=== PATIENT | male | born 1965 | race Caucasian/White ===

== ENCOUNTER → 2016-04-22 | Outpatient (CLI) | payer OTHER ==
[~2016-04-22] MED LIST: ASCO1CAP3 PO; DEXL60CA4 PO; DUTA1CAP25 PO; ECHINACEA PO; LISI-729 PO; METH10TA6 PO
[2016-04-22 18:10] LABS: THYROID STIMULATING HORMONE 2.2 uIu/ml (0.300-4.500)
== END | disposition home or self-care (01) ==
LOC: C.LABMFLN 07:26
PROVIDERS: ATTEND Family Medicine
DX: E05.90 Thyrotoxicosis, unspecified without thyrotoxic crisis or storm (principal)

== ENCOUNTER → 2016-07-29 | Outpatient (CLI) | payer OTHER ==
[2016-07-29 18:58] LABS: CALCIUM 9.1 mg/dl (8.5-10.1)
[2016-07-29 19:01] LABS: BLOOD UREA NITROGEN 16 mg/dl (7-18); BUN/CREATININE RATIO 13.5 (10-20); CARBON DIOXIDE 25 mmol/L (21-32); CHLORIDE 104 mmol/L (98-107); GLUCOSE 85 mg/dl (70-99); POTASSIUM 4.2 mmol/L (3.5-5.1); SODIUM 139 mmol/L (136-145)
[2016-07-29 19:11] LABS: THYROID STIMULATING HORMONE 0.714 uIu/ml (0.300-4.500)
== END | disposition home or self-care (01) ==
LOC: C.LABMFLN 17:02
PROVIDERS: ATTEND Family Medicine
DX: E05.00 Thyrotoxicosis with diffuse goiter without thyrotoxic crisis or storm (principal); I10 Essential (primary) hypertension

== ENCOUNTER → 2017-06-02 | Outpatient (CLI) | payer OTHER ==
[2017-06-02 18:33] LABS: BLOOD UREA NITROGEN 14 mg/dl (7-18); CALCIUM 9.7 mg/dl (8.5-10.1); CARBON DIOXIDE 28 mmol/L (21-32); CREATININE 1.25 mg/dl (0.60-1.40); GLUCOSE 106 mg/dl (70-99); SODIUM 136 mmol/L (136-145)
== END | disposition home or self-care (01) ==
LOC: C.LABMFLN 15:39
PROVIDERS: ATTEND Family Medicine
DX: E05.90 Thyrotoxicosis, unspecified without thyrotoxic crisis or storm (principal); I10 Essential (primary) hypertension

== ENCOUNTER 2020-06-01 09:53 | Inpatient (IN) ==
--- NOTE | 2020-04-22 15:25 | Communication Note ---
COVID screening: Called patient to discuss work travel hx in regards to upcoming shoulder arthroplasty scheduled 06/01/20. 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 Patient states that he will receive his second Covid vaccine 05/08/20. Patient states during travel he sleeps in his truck and brings his own food only stopping for fuel and to use facilities- he states he follows strict Covid precaution guidelines and rarely has interactions with other people. Uses PPE. Patient does not know his work schedule until 1-2 weeks prior but will contact PAT closer to DOS to update regarding on what work travel is planned/scheduled in the time period prior to surgery. Patient aware to continue following strict COVID precaution guidelines.
--- NOTE | 2020-05-07 09:39 | PAT Medication Instructions ---
Medication Instructions Date of Service May 07, 2020 Home Medications allopurinol 300 mg PO QAM cetirizine 10 mg PO QAM dutasteride-tamsulosin 1 cap PO QAM lisinopril 5 mg PO QAM methimazole 10 mg PO QAM tamsulosin 0.4 mg PO QAM DO NOT take the morning of surgery cetirizine 10 mg PO QAM lisinopril 5 mg PO QAM Take morning of surgery With a small sip of water, OTHERWISE NOTHING TO EAT OR DRINK AFTER MIDNIGHT: allopurinol 300 mg PO QAM dutasteride-tamsulosin 1 cap PO QAM methimazole 10 mg PO QAM tamsulosin 0.4 mg PO QAM Other Notes If you have any questions please call us at [phone] or [phone] or [phone] or [phone]
--- NOTE | 2020-05-15 14:22 | Anesthesiology Consultation ---
Date of Service May 15, 2020 Assessment & Plan (1) Encounter for pre-operative examination: COVID Status: As of 05/15 assessment, patient denies travel to endemic area, known exposure/sick contacts, or symptoms of COVID19. Patient instructed that they and their household members must follow strict social distancing guidelines, wear a mask in public and avoid travel/events/gatherings for 14 days prior to surgery. Preoperative COVID19 testing to be completed prior to surgery per surgeon's arrangements. Patient made aware to self-isolate as much as possible between COVID testing and surgery. 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 PCP Clearance 05/15/20 = "Preoperative evaluation identified issues with obstructive sleep apnea. We will try to expedite sleep Medicine consultation with our Sleep Medicine colleagues. Patient's 12 lead EKG identified frequent unifocal PVCs with dyspnea on exertion. Patient will have a stress echo performed prior to his surgery. Routine preoperative blood work to include BMP CBC PT INR ordered. BNP. Patient return clinic in 10 days for clearance for surgery. CXR ordered." Chart Review Chart Review: Acceptable Risk for Surgery (pending stress test and final PCP clearance) and Patient seen in Pre Admission Testing Teaching & Discussion Instructed NPO after midnight before surgery, except medications with 15 cc of water. Medication instructions provided according to the PAT guidelines. History Surgery Operation Date: 06/01/20 08:40 Proposed Procedures p Right Reverse Total Shoulder Arthroplasty, Distal Clavicle Excision, Biceps Tenodesis - Jv Odonnell MD Height/Weight Height: 6 ft 3 in Weight: 149.685 kg Allergies Allergy/AdvReac Type Severity Reaction Status Date / Time No Known Allergies Allergy Verified 05/15/20 09:41 Medications Home Medications Medication Instructions Recorded Confirmed Last Taken allopurinol 300 mg PO QAM 04/22/20 05/15/20 Unknown cetirizine 10 mg PO QAM 04/22/20 05/15/20 Unknown dutasteride-tamsulosin 1 cap PO QAM 04/22/20 05/15/20 Unknown lisinopril 5 mg PO QAM 04/22/20 05/15/20 Unknown methimazole 10 mg PO QAM 04/22/20 05/15/20 Unknown tamsulosin 0.4 mg PO QAM 04/22/20 05/15/20 Unknown Past Medical History Medical History (Updated 05/15/20 @ 15:10 by Sravan Kaiser) BPH (benign prostatic hyperplasia) Enlarged prostate without lower urinary tract symptoms (luts) Gout Graves disease On methimazole Hypertension Morbid obesity with BMI of 40.0-44.9, adult Osteoarthritis Sleep apnea, obstructive Patient denies, but scanned overnight pulse oximetry data does show significant nocturnal hypoxia. Pt to follow up with pulm/sleep med 06/10/20. 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) Past Family History Family History Mother Myocardial infarction CHF (congestive heart failure) Grandmother Myocardial infarction Past Surgical History Surgical History (Updated 05/15/20 @ 14:25 by Sravan Kaiser) Biceps tendon rupture left forearm 2014 History of cardiac cath 2006 - CP - no stent ,pt reports CP ruled 2/2 gas/reflux History of shoulder surgery right shoulder repair 1982 History of umbilical hernia repair Past Anesthesia History No Hx of Anesthesia Complications and No Family Hx of Anesthesia Complications History of PONV No Hx of PONV and No Hx of Motion Sickness Social History Smoking Status: Former smoker tobacco type: cigarettes Do You Dip or Chew Tobacco: Yes (advised None AM DOS) Smoking End Date: quit 20 yrs ago Hx Alcohol Use: Yes Alcohol type: beer alcohol intake frequency: a few times a month Hx Substance Use: No substance use type: does not use Review of Systems Pt denies any recent chest pain, shortness of breath, palpitations, cough, fever, URI. +post nasal drip with reflexive cough +reflux Physical Exam Vital Signs BP: 138/77 P: 70bpm SPO2: 94% RA T: 98.6 F R: 18 Constitutional + morbidly obese ENMT Mouth: no dental restorations, no chipped teeth and no loose teeth Thyromental Distance: > or= 3.5 Finger Breadths Mallampati Class: III Neck + thick neck and + facial hair (short singh); neck extension not limited Respiratory normal respiratory effort, lungs clear to auscultation Cardiovascular Rate/Rhythm: regular rate and regular rhythm Heart Sounds: + murmur (I/ systolic with radiation to carotids) Extremities: no edema Testing Laboratory Results APTT 25.8 Seconds (21.0-31.0) 05/15/20 10:58 Urine Color Yellow 05/15/20 14:45 Urine Appearance Clear (Clear) 05/15/20 14:45 Urine pH 7.0 (4.5-7.5) 05/15/20 14:45 Ur Specific [place] 1.018 (1.000-1.030) 05/15/20 14:45 Urine Protein Negative (Negative) 05/15/20 14:45 Urine Glucose (UA) Negative (Negative) 05/15/20 14:45 Urine Ketones Negative (Negative) 05/15/20 14:45 Urine Nitrite Negative (Negative) 05/15/20 14:45 Ur Leukocyte Esterase Negative (Negative) 05/15/20 14:45 Blood Type A Positive 05/15/20 14:45 Antibody Screen NEGATIVE 05/15/20 14:45 05/15/20 WBC: 6.31 H/H: 14.7/44.1 PLATELETS: 259 SODIUM: 138 POTASSIUM: 4.3 CHLORIDE: 105 CO2: 30 BUN: 16 CREATININE: 1.31 GLUCOSE: 105 TSH: 4.500 PT: 10.3 INR: 1.0 Electrocardiogram Date: 05/15/20 Sinus rhythm at 72 bpm with frequent ventricular premature complexes. *unconfirmed, done at [facility] clearance [facility] Chest X-Ray Date: 05/15/20 IMPRESSION: 1. No acute cardiopulmonary findings. 2. Mild cardiomegaly.
--- NOTE | 2020-05-15 15:12 | XRay Report ---
XR chest Pre-admission PA/Lat CLINICAL HISTORY: Preoperative evaluation. COMPARISON STUDY: No previous studies for comparison. FINDINGS: Lung volumes are normal. Lungs are clear. There is no pneumothorax or pleural effusion. Mil d cardiomegaly is noted. Mediastinal contours are normal. There is no evidence for pulmonary edema. IMPRESSION: 1. No acute cardiopulmonary findings. 2. Mild cardiomegaly. ACT 112: Negative or not required by law. Electronically signed by: Mg Nguyen M.D. 05/15/2020 3:10 PM
[2020-05-15 15:21] LABS: Partial Thromboplastin Time 25.8 Seconds (21.0-31.0)
[2020-05-15 15:47] LABS: Appearance Urine Clear (Clear); Bilirubin Urine Negative (Negative); Blood Urine Negative (Negative); Color Urine Yellow; Glucose Urine UA Negative (Negative); Ketones Urine Negative (Negative); Leukocyte Esterase Urine Negative (Negative); Nitrite Urine Negative (Negative); Protein Urine Negative (Negative); Specific Gravity Urine 1.018 (1.000-1.030); Urobilinogen Urine Negative (Negative)
[2020-05-16 06:01] LABS: Estimated Average Glucose 126 mg/dl
--- NOTE | 2020-05-30 19:03 | History & Physical Report ---
Date of Service May 30, 2020 Assessment & Plan (1) Primary osteoarthritis, right shoulder: Treatment options discussed with patient. He has failed conservative measures as above. He would like to proceed with surgical intervention. Risks, benefits and alternatives to surgery including but not limited to infection, DVT, pain, stiffness, need for revision surgery, damage to blood vessels, damage to nerves, PE, , were discussed with the patient and they wish to proceed. Plan for right total shoulder arthroplasty with distal clavicle excision at [facility] on 06/01/[address] Odonnell. Will plan on OPPT post discharge from the hospital. All questions answered. F/u post operatively. History of Present Illness Chief Complaint: Right shoulder pain Primary Care Provider: Momo Álvarez MD 55 year old male with PMHx significant for HTN, hyperthyroidism, moderate aortic stenosis, JEFFERSON who presents with longstanding right shoulder pain. Pain interfering with his daily activity. He has endstage OA right shoulder. He has failed conservative measures including injection and anti-inflammatories. He would like to proceed with right shoulder replacement. Patient denies headaches, sweats, fevers, chills, double vision, blurred vision, cough, sore throat, dysphagia, chest pain, sob, wheezing, n/v/d/c, numbness, tingling, fatigue, urinary symptoms, mood disorders. ROS positive for right shoulder pain and stiffness. Allergies Allergy/AdvReac Type Severity Reaction Status Date / Time No Known Allergies Allergy Verified 05/27/20 14:35 Home Medications Medication Instructions Recorded Confirmed Type allopurinol 300 mg PO QAM 04/22/20 05/27/20 History cetirizine 10 mg PO QAM 04/22/20 05/27/20 History dutasteride-tamsulosin 1 cap PO QAM 04/22/20 05/27/20 History methimazole 10 mg PO QAM 04/22/20 05/27/20 History tamsulosin 0.4 mg PO QAM 04/22/20 05/27/20 History losartan 25 mg tablet 25 mg PO DAILY #30 tab 05/27/20 05/27/20 Rx Past Med/Surg History Medical History (Updated 05/30/20 @ 19:14 by Ector Huynh) BPH (benign prostatic hyperplasia) Enlarged prostate without lower urinary tract symptoms (luts) Gout Graves disease On methimazole Hypertension Moderate aortic stenosis Morbid obesity with BMI of 40.0-44.9, adult Osteoarthritis Sleep apnea, obstructive Patient denies, but scanned overnight pulse oximetry data does show significant nocturnal hypoxia. Pt to follow up with pulm/sleep med 06/10/20. Surgical History (Updated 05/15/20 @ 14:25 by Sravan Kaiser) Biceps tendon rupture left forearm 2014 History of cardiac cath 2006 - CP - no stent ,pt reports CP ruled 2/2 gas/reflux History of shoulder surgery right shoulder repair 1982 History of umbilical hernia repair Family History Mother Myocardial infarction CHF (congestive heart failure) Grandmother Myocardial infarction Social History Smoking Status: Former smoker Age Started Using Tobacco: 21; Age Quit Using Tobacco: 35; Second Hand Exposure: No; Hx Alcohol Use: Yes Alcohol type: beer Hx Substance Use: No Preferred Language: Algerian Communication Ability: Effective Visual Impairment: No Limitations Hearing Ability: Normal Rotary Drum Tanner Required: No Beliefs That Will Affect Care: None marital status: Current Living Situation: Spouse current occupational status: employed 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 Feels Safe at Home: Yes Childhood Exposure to Second-Hand Smoke: Yes caffeine: Yes Seatbelt Use: always Sunscreen Use: Yes Assistive Devices: Glasses Review of Systems All systems reviewed & are unremarkable except as noted in HPI & below Physical Exam Constitutional: well developed and well nourished; no acute distress Eyes: PERRL, conjunctivae normal, anicteric sclerae ENMT: external ear and nose normal, oropharynx normal Neck: trachea midline, no thyromegaly Respiratory: normal respiratory effort, lungs clear to auscultation Cardiovascular: Rate/Rhythm: regular rate and regular rhythm Heart Sounds: + murmur (II/ Systolic murmur ) Extremities: no edema Musculoskeletal: Right shoulder: Surgical scar deltopecortal region. Crepitus with motion. Positive Speed's. Painful ROM actively. ROM: ER to 30 degrees, IR to L4, FF to 120 degrees, abduction to 100 degrees. Strength-4+/5 ER, 5/5 IR, and 4+/5 abduction. Skin: no rashes, warm and dry Neurologic: patellar DTR's 2+ bilat, sensation intact Psychiatric: A+Ox3, euthymic affect Results & Data ([facility]) Laboratory Results Lab Results 05/15/20 05/15/20 05/15/20 Range/Units 10:58 14:45 14:45 APTT 25.8 (21.0-31.0) Seconds PTT Ratio 1.0 Estimat Average Glucose mg/dl Hemoglobin A1c (4.5-5.6) % Albumin 3.8 (3.4-5.0) gm/dl Urine Color Urine Appearance (Clear) Urine pH (4.5-7.5) Ur Specific [place]issie (1.000-1.030) Urine Protein (Negative) Urine Glucose (UA) (Negative) Urine Ketones (Negative) Urine Blood (Negative) Urine Nitrite (Negative) Urine Bilirubin (Negative) Urine Urobilinogen (Negative) Ur Leukocyte Esterase (Negative) Blood Type A Positive Antibody Screen NEGATIVE 05/15/20 05/15/20 Range/Units 14:45 14:45 APTT (21.0-31.0) Seconds PTT Ratio Estimat Average Glucose 126 mg/dl Hemoglobin A1c 6.0 H (4.5-5.6) % Albumin (3.4-5.0) gm/dl Urine Color Yellow Urine Appearance Clear (Clear) Urine pH 7.0 (4.5-7.5) Ur Specific [place]issie 1.018 (1.000-1.030) Urine Protein Negative (Negative) Urine Glucose (UA) Negative (Negative) Urine Ketones Negative (Negative) Urine Blood Negative (Negative) Urine Nitrite Negative (Negative) Urine Bilirubin Negative (Negative) Urine Urobilinogen Negative (Negative) Ur Leukocyte Esterase Negative (Negative) Blood Type Antibody Screen Diagnostic Findings Right shoulder: MRI demonstrates intratendinous tearing rotator cuff appears functional, normal subscapularis. AC joint OA, biceps tenosynovitis. X-rays: Bone on bone GH joint with periacticular osteophyte formation, AC joint OA, Type 2 acromion.
[~2020-06-01 09:53] MED LIST changes: +ACETAMINOPHEN 500 MG TAB PO SCH; -ASCO1CAP3 PO; +BUPIVACAINE 0.5 % 5 MG/1 ML PF 10ML VIAL ONE; -DEXL60CA4 PO; -DUTA1CAP25 PO; -ECHINACEA PO; +FAMOTIDINE 20 MG TAB PO SCH; +GABAPENTIN 600 MG DOSE PO SCH; -LISI-729 PO; +LR 15ML/HR IV SCH; +LR 500ML BOLUS IV SCH; -METH10TA6 PO; +METOCLOPRAMIDE HCL 10 MG TABLET PO SCH; +ceFAZolin 2000MG 2,000 MG/15 ML SYR IV SCH; +dexAMETHasone 4 MG TAB PO SCH
[2020-06-01] MEDS ORDERED: fentaNYL citrate 100 MCG/2 ML VIAL ONE ×4 (11:08→16:00)
[2020-06-01] MEDS ORDERED: MIDAZOLAM HCL 1 MG/ML 2ML VIAL ONE (11:08)
[2020-06-01] MEDS ORDERED: ATROPINE SULFATE 0.1 MG/ML 10ML SYR IV PRN (11:51)
[2020-06-01] MEDS ORDERED: ONDANSETRON INJ 2 MG/ML 2 ML VIAL IV PRN ×2 (11:51→18:32)
[2020-06-01] MEDS ORDERED: fentaNYL citrate 100 MCG/2 ML VIAL IV PRN (11:51)
[2020-06-01] MEDS ORDERED: PROMETHAZINE HCL 6.25 MG in SODIUM CHLORIDE 0.9% 50 ML IV PRN (11:51)
[2020-06-01] MEDS ORDERED: ePHEDrine sulfate 50 MG/ML AMP IV PRN (11:51)
--- NOTE | 2020-06-01 12:21 | History & Physical Bridge Note ---
Date of Service June 01, 2020 History & Physical Bridge Note I have examined the patient, reviewed the History & Physical and in the interval since the performance of the History & Physical I have noted the following changes of clinical significance: no changes noted
[2020-06-01] MEDS ORDERED: BACITRACIN INJ 50,000 UNIT VIAL ONE (12:35)
[2020-06-01] MEDS ORDERED: DEXAMETHASONE SOD INJ 4 MG/ML VIAL ONE (12:40)
[2020-06-01] MEDS ORDERED: ROCURONIUM BROMIDE 10 MG/ML 5 ML VIAL IV ONE (12:40)
[2020-06-01] MEDS ORDERED: GLYCOPYRROLATE 0.2 MG/ML VIAL ONE (12:40)
[2020-06-01] MEDS ORDERED: NEOSTIGMINE METHYLSULFATE 5 MG/5 ML SYR ONE (12:40)
[2020-06-01] MEDS ORDERED: LIDOCAINE HCL 2% 2 ML VIAL/AMP(20MG/ML) INFIL ONE (12:40)
[2020-06-01] MEDS ORDERED: PROPOFOL IV EMULSION 10 MG/ML 20 ML VIAL IV ONE ×2 (12:40→15:58)
[2020-06-01] MEDS ORDERED: ONDANSETRON INJ 2 MG/ML 2 ML VIAL ONE ×2 (12:40→15:58)
[2020-06-01] MEDS ORDERED: EpINEphrine HCL INJ 1 MG/ML 1ML SYRINGE ONE ×2 (13:19→13:22)
[2020-06-01] MEDS ORDERED: PHENYLEPHRINE HCL 10 MG/ML VIAL ONE (15:31)
[2020-06-01] MEDS ORDERED: PHENYLEPHRINE 100MCG/ML 5ML SYR ONE (15:31)
[2020-06-01] MEDS ORDERED: ePHEDrine sulfate 50 MG/ML SYR ONE (15:58)
[2020-06-01] MEDS ORDERED: HYDROmorphone INJ 2 MG/ML SYR/VIAL ONE (16:37)
--- NOTE | 2020-06-01 17:23 | Post Operative Brief Note ---
Immediate Post Op Note v1 Date of Surgery June 01, 2020 Pre & Post Diagnosis Operation Date: 06/01/20 12:10 Pre-Op Diagnosis: Primary Osteoarthritis, Right Shoulder, glenohumeral joint and acromioclavicular joint, biceps tenosynovitis, morbid obesity BMI 43.7 Post-Op Diagnosis: Primary Osteoarthritis, Right Shoulder, glenohumeral joint and acromioclavicular joint, biceps tenosynovitis, degenerative glenoid labral tear, morbid obesity BMI 43.7. I identified the patient and participated in the time-out.: Yes Procedure Operation Date: 06/01/20 12:10 Actual Procedures p Right Total Shoulder Arthroplasty with cemented glenoid, Distal Clavicle Excision, Biceps Tenodesis(Right), debridement labrum and large osteophytes glenoid, increased difficulty BMI 43.7- Jv Odonnell MD Surgeon Jv Odonnell MD Buffer Inflated Pad Satish MARISCAL Estimated Blood Loss 200 Findings Consistent with Post-Op Diagnosis Drains Hemovac Drain Anesthesia Type General Regional Complications none Disposition Accompanied Patient To Recovery: No Disposition: Recovery Room Overlapping Procedure I was immediately available: during the entire case.
--- NOTE | 2020-06-01 17:53 | Operative Report ---
Post Operative Report Pre & Post Diagnosis Operation Date: 06/01/20 12:10 Pre-Op Diagnosis: Right shoulder osteoarthritis glenohumeral joint and AC joint, biceps tenosynovitis, history of prior open anterior stabilization procedure for anterior shoulder dislocation, morbid obesity BMI 43.7 Post-Op Diagnosis: Right shoulder osteoarthritis glenohumeral joint and AC joint, biceps tenosynovitis, large glenoid osteophytes with degenerative glenoid labral tear, history of prior open anchor stabilization procedure for anterior shoulder dislocation, morbid obesity BMI 43.7. I identified the patient and participated in the time-out.: Yes Procedure Operation Date: 06/01/20 12:10 Actual Procedures p Right Total Shoulder Arthroplasty Cemented, Distal Clavicle Excision, Biceps Tenodesis, excision large glenoid osteophytes and debridement glenoid labrum, increased difficulty morbid obesity BMI 43.7 (Right) - Jv Odonnell MD Surgeon Jv Odonnell MD Tax Investigator Satish MARISCAL Estimated Blood Loss 200 Findings Consistent with Post-Op Diagnosis Specimens Humeral head Drains 2 Hemovac Anesthesia Type General Regional Complications none Disposition Accompanied Patient To Recovery: No Disposition: Recovery Room Indications 55-year-old male with progressive osteoarthritis in his right shoulder. Radiographs demonstrate [id number] glenohumeral joint with central wear. Patient has hypertrophic AC joint with inferior spur that would contribute to some impingement. MRI reading was positive for rotator cuff tear per radiologist but I felt it was more just tendinopathy with an intact rotator cuff to my interpretation. There is marked biceps tenosynovitis. Patient had open anterior shoulder stabilization procedure in 1984 type of procedure unknown. Patient has had no recurrent instability. Description of Procedure Patient was placed placed under regional block and general anesthetic. The right upper extremity had a towel roll placed on the medial border of the scapula and translated to the side of the bed so it could be manipulated off of the bed as necessary. We had to place a large and typical towel roll and took more time positioning due to his obesity. A foam headrest was placed and protective eyewear was placed. Lower extremities were well-padded. Patient was positioned in a beachchair position approximately 40 degrees. Shoulder exam demonstrated forward flexion to 160 degrees but external rotation only 35 degrees and abduction to 70 degrees with marked [id number] crepitation. No anterior instability. There was an old anterior deltopectoral scar which was widened and thin. The arm was obese. The right upper extremity was prepped and draped in sterile fashion. A deltopectoral approach was performed via the old incisional scar which was utilized and extended slightly distally and laterally. The skin was incised sharply and the subcutaneous flaps were elevated. The cephalic vein was dissected out and retracted laterally with the deltoid. There was dense scar tissue encountered under the deltoid overlying the clavipectoral fascia. After identifying the scarred clavipectoral fascia this was divided at the lateral margin of the conjoined tendon and extended up to the CA ligament. There was significant scarred bursa tissue and some scar tissue overlying the subscapularis tendon where there were sutures adjacent to the upper conjoined tendon and coracohumeral ligament area. The underlying subscapularis tendon tissue was intact. The sutures seem to be superficial to the subscapularis. The scar tissue scarred bursa and old suture material was all resected. The supraspinatus was intact as well as the infraspinatus but there was subacromial bursitis which was resected. Scar tissue underlying the CA ligament was resected and the scar tissue under the conjoined tendon was released to free up the subscapularis tendon. A self-retaining retractor was placed. Biceps findings demonstrated marked biceps tenosynovitis with hypertrophic tenosynovitis starting at the bicipital groove and extending down along the anterior biceps. This tenosynovium was resected from the transverse ligament area which was divided down to the pectoralis tendon. The upper centimeter of the pectoralis was released for inferior exposure. Biceps tendon was tenodesed to the pectoralis with [id number] #2 FiberWire sutures. the proximal biceps resected. The circumflex vessels were tied off with silk ties and divided laterally. The subscapularis muscle fibers were at the level of the circumflex vessels dissection was taken down to the capsule and a Kitner elevator was used to release the inferior fibers of the capsule protecting the axillary nerve inferiorly. A blunt Hohmann retractors were placed between the inferior located axillary nerve and the capsule. This was verified with a tug test. The rotator interval was opened up and extended down to the glenoid. The subscapularis was taken down with a transtendinous incision leaving a cuff of tissue for repair on the lesser tuberosity. The incision was carried through the subscapularis to the capsule and then subperiosteally along the inferior capsule exposing the inferior humeral osteophytes. These demonstrated very large osteophytes extending from lateral inferior to posterior.. The osteophytes were resected with an artist chisel and rongeur. The humeral head findings demonstrated eburnated bone on most of the humeral head with peripheral osteophytes. Patient had a large humeral head.. After the osteophytes were resected humeral head is retracted posterior to the glenoid with a Fukuda retractor. The glenoid findings demonstrated eburnated bone on the glenoid. There was central type A wear pattern there was a small rim of articular cartilage still remaining in the superior glenoid and anterior superior glenoid this was let alone. There was a very large spur on the anterior-inferior glenoid. This was about 3.5 cm x 2 cm in size. There was also another large spur posterior superior glenoid which was about 2.5 x 1 cm. In order to get better exposure did a release of the capsule down to the glenoid at the 5 o'clock position but did not releasing the capsule off the anterior glenoid and let it attached to the anterior labrum due to the history of previous dislocation. The inferior labrum and capsule was maintained intact but I debrided the inferior labrum and the posterior inferior labrum where there was degenerative fraying. The large osteophytes were carefully dissected away from the capsule and removed leaving the capsular attachment intact. This was performed anteriorly and posterior superiorly. The remainder of the biceps tend on attached superiorly to the glenoid was resected. Upon completion of the releases the humeral head was reexposed with retractors and humeral head was sized for a size 52 x 56 Arthrosurface OVO motion humeral head. The central guidepin was placed. The threaded stop for the reamer was drilled into the head. This was placed at the appropriate depth. The head reamer was used. All debris was irrigated out of the joint. The flat head resection reamer was used. The remaining section of bone was removed with a saw. The humerus was then retracted posteriorly again with the Fukuda retractor posterior to the glenoid. The guide for the glenoid component was placed and the guide pin was advanced to the appropriate depth. It was noted that the patient had very hard bone even just placing the guidepin in place. Glenoid reamers were utilized. The depth gauge verified the depth of the reaming. Because of the large size of the glenoid we chose to use the snowman type larger glenoid component. With trial in place second drill pin was placed and the trial and first guide pin removed and the reamers were used for the upper portion of the glenoid component. The 2 drill holes for the central post was placed. Bone was very hard and the drill bit broke during the procedure and we had to use a second drill bit and an awl to make appropriate size opening in this very hard eburnated bone. Trial component was placed at satisfactory position and depth. Trial was removed and the glenoid reamed area was prepared for cementing with several drill holes placed around the reamed area to accept cement. After further irrigation the reamed area was packed with epinephrine soaked tampon sponges. The Palacos cement was vacuum mixed. The cement was injected into the glenoid and compressed with a finger compression device. More cement was placed on the back of the glenoid component and it was inserted into the reamed area in appropriate position with the suction device that held onto the component. When the component was appropriate seating position the suction was removed as well as a suction device and direct pressure was placed on of the component and excess cement was cleared and the component was held in position until the cement fully cured. The final glenoid component was a 20 x 25 snowman glenoid Arthrosurface inlay polyethylene glenoid. Attention was taken back to the humerus. The humeral head guide was placed onto the humeral head in the appropriate position. The guidepin was readvanced in position. The 12 mm tapered post was inserted to appropriate depth with excellent fixation. At this time 3 drill holes were made along the lateral surface of the lesser tuberosity spanning the distance of the subscapularis attachment and 3 transosseous #5 FiberWire sutures were placed for repair of the subscapularis. After copious irrigation the Clay taper of the tapered post was dried and then the humeral component size 56 x 52 OVO motion head from [employer] face was impacted onto the taper post with stable fixation. This was assessed with a Lambert elevator to be stable. This was then reduced to the glenoid and range of motion and stability was assessed. After copious irrigation the subscapularis was repaired with the #5 FiberWire sutures using Pravin-Travon suture technique and lateral row soft tissue repair with #2 FiberWire osswrt-zs-phzes sutures and the rotator interval was closed in maximal external rotation with interrupted #2 FiberWire sutures. Range of motion was assessed demonstrating 140 degrees forward elevation 45 degrees external rotation 90 degrees abduction without any tension on subscapularis repair. Pectoralis tendon was repaired with atkrtx-hp-nlnai #2 FiberWire sutures and the sutures were passed through the biceps tendon to reinforce the biceps tenodesis. After irrigation a moist sponge was placed into the wound. A longitudinal saber type incision was made over the distal clavicle for about 3 cm. Skin was incised sharply, subcutaneous flaps were elevated, subcutaneous bleeders were cauterized. A transverse incision was made in the deltotrapezial fascia exposing the distal clavicle. Distal clavicle had arthritic changes with osteophytes and joint degeneration. 8 to 10 mm of distal clavicle was resected with an oscillating saw. The degenerative tissue in the AC joint space was debrided. After further irrigation the deltotrapezial fascia was closed with 2 mglfqx-eu-xcmnx #2 FiberWire sutures. The wound wounds were copiously irrigated and 2 Hemovac drains were placed brought out laterally in the deltopectoral incision area.. The deltopectoral interval was repaired with lbgvei-[id number] #1 Vicryl sutures and in both incisions the subcutaneous tissues were closed into 2-0 Vicryl sutures and skin closed with king and services were applied and a shoulder immobilizer. The patient tolerated the procedure well. Was increased level difficulty increasing length time of surgery by 30 minutes due to his obesity. Satish MARISCAL my physician speech assistant assisted in the procedure with arm positioning soft tissue retraction instrument management suture management and performed the subcutaneous and skin closure dressings and shoulder immobilizer application and will participate in the postop care the patient. I attest to the content of the Intraoperative Record and any orders documented therein. Any exceptions are noted below.
--- NOTE | 2020-06-01 17:53 | XRay Report ---
XR shoulder RT min 2V routine CLINICAL HISTORY: Post shoulder surgery COMPARISON: Right shoulder radiographs March 20, 2020. FINDINGS: Alignment of the right shoulder arthroplasty is anatomic. Hardware is intact. Surgical xochitl ins and skin king are noted. There are no unexpected radiopaque foreign bodies. Postoperative find ings within the distal right clavicle are noted. IMPRESSION: Expected findings following right shoulder arthroplasty. ACT 112: Negative or not required by law. Electronically signed by: Mg Nguyen M.D. 06/01/2020 5:51 PM
--- NOTE | 2020-06-01 18:05 | Anesthesiology Progress Note ---
Date of Service June 01, 2020 Anesthesia Post Procedure Vital Signs Vital Signs: Temp Pulse Pulse Resp BP Pulse Ox 06/01/20 17:45 90 15 121/81 95 06/01/20 17:35 91 H 15 136/61 95 06/01/20 17:29 36.5 C 89 16 128/60 96 06/01/20 11:04 64 20 135/62 93 06/01/20 10:05 36.9 C 95 H 20 151/58 H 95 Pain Intensity Right Shoulder: Pain Intensity: 10 Transfer of Care Handoff Completed per policy Notes Mental Status: alert / awake / arousable and participated in evaluation Patient Amnestic to Procedure: Yes Nausea / Vomiting: adequately controlled Pain: adequately controlled Airway Patency, RR, SpO2: stable & adequate BP & HR: stable & adequate Hydration State: stable & adequate Anesthetic Complications: no major complications apparent
[2020-06-01] MEDS ORDERED: METOCLOPRAMIDE HCL INJ 5 MG/ML 2 ML VIAL IV PRN (18:32)
[2020-06-01] MEDS ORDERED: MAGNESIUM HYDROXIDE SUSP 30 ML UDC PO PRN (18:32)
[2020-06-01] MEDS ORDERED: bisacodyL 10 MG SUPP PR PRN (18:32)
[2020-06-01] MEDS ORDERED: NALOXONE HCL 0.4 MG/1 ML VIAL/CARP IV PRN (18:32)
[2020-06-01] MEDS ORDERED: oxyCODONE HCL IR 5 MG TAB (IMMEDIATE RELEASE) PO PRN (18:32)
[2020-06-01] MEDS ORDERED: HYDROmorphone INJ 0.5 MG/0.5 ML SYR IV PRN (18:32)
[2020-06-01] MEDS ORDERED: SODIUM CHLORIDE 0.9% 1000ML 1,000 ML IV SCH (19:00)
[2020-06-01] MEDS ORDERED: SENNA 8.6 MG TAB PO SCH (21:00)
[2020-06-01] MEDS: ceFAZolin 2000MG 2,000 MG/15 ML SYR IV SCH (21:16)
[2020-06-01] MEDS: ACETAMINOPHEN 500 MG TAB PO SCH (21:17)
[2020-06-01] MEDS: DOCUSATE SODIUM 100 MG CAP PO SCH (21:18)
--- NOTE | 2020-06-01 21:45 | Hospitalist Consultation ---
Date of Consultation June 01, 2020 Assessment & Plan (1) Primary osteoarthritis, right shoulder: as per primary team (2) Benign prostatic hyperplasia: cont tamsulosin. (3) Benign essential hypertension: cont losartan (4) Hyperthyroidism: cont methimazole (5) Morbid obesity with BMI of 40.0-44.9, adult: recommend lifestyle modifications dvt proph: per primary service. History of Present Illness Attending Physician: Jv Odonnell MD 55 year old male with PMHx significant for HTN, hyperthyroidism, moderate aortic stenosis, JEFFERSON who presents with longstanding right shoulder pain. He is status post Total right shoulder arthroplasty. Patient denies any new complaints at this time. Allergies Allergy/AdvReac Type Severity Reaction Status Date / Time No Known Allergies Allergy Verified 06/01/20 10:15 Home Medications Medication Instructions Recorded Confirmed Type allopurinol 300 mg PO QAM 04/22/20 06/01/20 History cetirizine 10 mg PO QAM 04/22/20 06/01/20 History dutasteride-tamsulosin 1 cap PO QAM 04/22/20 06/01/20 History methimazole 10 mg PO QAM 04/22/20 06/01/20 History tamsulosin 0.4 mg PO QAM 04/22/20 06/01/20 History losartan 25 mg tablet 25 mg PO DAILY #30 tab 05/27/20 06/01/20 Rx Patient History Medical History BPH (benign prostatic hyperplasia) Enlarged prostate without lower urinary tract symptoms (luts) Gout Graves disease On methimazole Hypertension Moderate aortic stenosis Morbid obesity with BMI of 40.0-44.9, adult Osteoarthritis Sleep apnea, obstructive Patient denies, but scanned overnight pulse oximetry data does show significant nocturnal hypoxia. Pt to follow up with pulm/sleep med 06/10/20. Surgical History Biceps tendon rupture left forearm 2014 History of cardiac cath 2006 - CP - no stent ,pt reports CP ruled 2/2 gas/reflux History of shoulder surgery right shoulder repair 1982 History of umbilical hernia repair Family History Mother Myocardial infarction CHF (congestive heart failure) Grandmother Myocardial infarction Social History Smoking Status: Current every day smoker Age Started Using Tobacco: 21; Age Quit Using Tobacco: 35; Smoking End Date: quit 20 yrs ago; Second Hand Exposure: No; Do You Dip or Chew Tobacco: Yes (advised None AM DOS); Tobacco Cessation Education Requested by Patient: No Hx Alcohol Use: Yes Alcohol type: beer Hx Substance Use: No Preferred Language: Spanish Communication Ability: Effective Visual Impairment: No Limitations Hearing Ability: Normal Farm Butcher Required: No Beliefs That Will Affect Care: None marital status: Current Living Situation: Spouse current occupational status: employed 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 Other Information That Helps Us Care for You: No Feels Safe at Home: Yes Safety Concerns: Feels Safe At This Time Childhood Exposure to Second-Hand Smoke: Yes caffeine: Yes Seatbelt Use: always Sunscreen Use: Yes Assistive Devices: Glasses Review of Systems Constitutional: no sweats and no malaise Eyes: no diplopia and no decreased night vision Ear, Nose, Mouth, Throat: no ear pain, no ear trauma and no tinnitus Respiratory: no cough and no dyspnea Physical Exam Constitutional: WD/WN, vitals as above Eyes: PERRL, conjunctivae normal, anicteric sclerae ENMT: external ear and nose normal, oropharynx normal Neck: trachea midline, no thyromegaly Respiratory: normal respiratory effort, lungs clear to auscultation Cardiovascular: RRR, no murmur, no edema Gastrointestinal (Abdomen): normal bowel sounds, soft, nontender, no hepatosplenomegaly Musculoskeletal: no cyanosis or clubbing, extremities motor strength 5/5 (except for R arm in shoulder sling) Skin: no rashes, warm and dry Neurologic: PERRL, EOMI, accommodation nl, no face palsy, no dysarthria Psychiatric: A+Ox3, euthymic affect Lymphatic: no cervical or axillary lymphadenopathy Results & Data Results & Data ([facility]) Vital Signs (Past 12 Hours) Vital Signs Temp Pulse Pulse Resp BP Pulse Ox 06/01/20 20:53 36.8 C 52 L 20 130/62 91 06/01/20 19:23 36.6 C 88 16 144/77 H 93 06/01/20 18:53 62 16 159/73 H 91 06/01/20 18:20 37.1 C 88 16 130/74 92 06/01/20 18:05 36.7 C 91 H 15 129/63 97 06/01/20 17:55 36.7 C 85 15 129/68 96 06/01/20 17:45 90 15 121/81 95 06/01/20 17:35 91 H 15 136/61 95 06/01/20 17:29 36.5 C 89 16 128/60 96 06/01/20 11:04 64 20 135/62 93 06/01/20 10:05 36.9 C 95 H 20 151/58 H 95 PG Care Time/CCT Total # of Minutes Spent Total Time Spent with Patient: Total time spent is greater than 50% in coordination of care (as documented) at patient's floor/unit and/or counseling patient: Coding Level of Care Code 39410 Inpt Consult Level 3 Diagnoses Primary osteoarthritis, right shoulder M19.011 Benign prostatic hyperplasia N40.0 Benign essential hypertension I10 Hyperthyroidism E05.90 Morbid obesity with BMI of 40.0-44.9, adult E66.01; Z68.41
[2020-06-02] MEDS: ceFAZolin 2000MG 2,000 MG/15 ML SYR IV SCH (05:42)
[2020-06-02] MEDS: ACETAMINOPHEN 500 MG TAB PO SCH (05:43)
[2020-06-02 08:20] LABS: Hematocrit (blood only) 38.7 % (42-52); Hemoglobin 13.3 g/dL (14.0-18.0); Immature Granulocytes # (auto) 0.02 K/uL (0.00-0.02); Immature Granulocytes % (auto) 0.2 %; Lymphocytes # (auto) 0.82 K/uL (1.2-3.4); Lymphocytes % (auto) 7.2 %; Mean Corpuscular Hemoglobin 31.3 pg (25-34); Mean Corpuscular Hgb Conc 34.4 g/dL (32-36); Mean Corpuscular Volume 91.1 fL (80-100); Mean Platelet Volume 10.1 fL (7.4-10.4); Monocytes # (auto) 1.21 K/uL (0.11-0.59); Monocytes % (auto) 10.6 %; Neutrophils # (auto) 9.36 K/uL (1.4-6.5); Platelet Count 296 K/uL (130-400); RDW Coefficient of Variation 13.8 % (11.5-14.5); RDW Standard Deviation 45.1 fL (36.4-46.3); Red Blood Count 4.25 M/uL (4.7-6.1); White Blood Count 11.41 K/uL (4.8-10.8)
--- NOTE | 2020-06-02 08:21 | Orthopedic Progress Note ---
Date of Service June 02, 2020 Assessment & Plan (1) Primary osteoarthritis, right shoulder: Postop day 1 status post right total shoulder arthroplasty PT/OT protocols. Nonweightbearing right upper extremity. DVT prophylaxis-aspirin, SCDs Pain management as written Labs pending AL planning-patient is planning for outpatient PT upon discharge. Admission and Anticipated Discharge Date Admission Date: June 01, 2020 Subjective Postop day 1 Patient sitting up in the chair at the bedside. No complaints this morning. States his block is still functioning fairly well. Pain is controlled. Denies shortness of breath, chest pain, lightheadedness. He is hoping to go home today. Physical Exam Physical Exam: Dressings are clean, dry, and intact. Capillary refill is less than 2 seconds. He continues to have residual effects from his block this morning. Continued numbness in the thumb and index finger with a little bit of weak director of teacher education strength. He is able to do some range of motion of the wrist but is weak as well. Hemovac drainage was 125 mL from the previous shift. Results & Data ([facility]) Vital Signs (Past 12 Hours) Vital Signs Temp Pulse Resp BP Pulse Ox 06/02/20 07:21 37.0 C 72 18 127/76 91 06/02/20 03:21 36.6 C 60 20 116/68 95 06/01/20 21:47 36.6 C 44 L 22 145/67 H 92 06/01/20 20:53 36.8 C 52 L 20 130/62 91
[2020-06-02] MEDS: DOCUSATE SODIUM 100 MG CAP PO SCH (08:51)
[2020-06-02 08:52] LABS: BUN Creatinine Ratio 18.3 (10-20); Calcium 8.7 mg/dl (8.5-10.1); Creatinine Clr Calc Pharmacy 103.3 ml/min; Est GFR (African American) 73.2; Est GFR (Non-African American) 63.2; Potassium 4.2 mmol/L (3.5-5.1)
[2020-06-02] MEDS ORDERED: methIMAzole 5 MG TABLET PO SCH (09:00)
[2020-06-02] MEDS ORDERED: LOSARTAN POTASSIUM 25 MG TAB PO SCH (09:00)
[2020-06-02] MEDS ORDERED: CETIRIZINE HCL 10 MG TABLET PO SCH (09:00)
[2020-06-02] MEDS ORDERED: TAMSULOSIN HCL 0.4 MG CAP PO SCH (09:00)
[2020-06-02] MEDS ORDERED: allopurinoL 300 MG TAB PO SCH (09:00)
[2020-06-02] MEDS ORDERED: MULTIVITAMIN TAB PO SCH (09:00)
--- NOTE | 2020-06-02 11:02 | Hospitalist Progress Note ---
Date of Service June 02, 2020 Assessment & Plan (1) Primary osteoarthritis, right shoulder: as per primary team Off of oxygen. Tolerating room air. (2) Benign prostatic hyperplasia: cont tamsulosin. Stable (3) Benign essential hypertension: cont losartan (4) Hyperthyroidism: cont methimazole (5) Morbid obesity with BMI of 40.0-44.9, adult: recommend lifestyle modifications dvt proph: per primary service. Medicine will sign off. Please call for further assistance. Thank you. Admission and Anticipated Discharge Date Admission Date: June 01, 2020 Subjective 55 yo male reports feeling well. He is ambulating, he is no longer on oxygen nasal cannula. He has no discomfort. Review of Systems Review of Systems: All systems reviewed & are unremarkable except as noted in HPI & below Physical Exam Physical Exam: Constitutional: WD/WN, vitals as above Eyes: PERRL, conjunctivae normal, anicteric sclerae ENMT: external ear and nose normal, oropharynx normal Neck: trachea midline, no thyromegaly Respiratory: normal respiratory effort, lungs clear to auscultation Cardiovascular: RRR, no murmur, no edema Gastrointestinal (Abdomen): normal bowel sounds, soft, nontender, no hepatosplenomegaly Musculoskeletal: no cyanosis or clubbing, extremities motor strength 5/5 (except for R arm in shoulder sling) Skin: no rashes, warm and dry Neurologic: PERRL, EOMI, accommodation nl, no face palsy, no dysarthria Psychiatric: A+Ox3, euthymic affect Lymphatic: no cervical or axillary lymphadenopathy Results & Data Results & Data ([facility]) Vital Signs (Past 12 Hours) Vital Signs Temp Pulse Resp BP Pulse Ox 06/02/20 07:21 37.0 C 72 18 127/76 91 06/02/20 03:21 36.6 C 60 20 116/68 95 PG Care Time/CCT Total # of Minutes Spent Total Time Spent with Patient: Total time spent is greater than 50% in coordination of care (as documented) at patient's floor/unit and/or counseling patient: Coding Level of Care Code 29362 Subseq Hosp Care Lvl 2 Diagnoses Primary osteoarthritis, right shoulder M19.011 Benign prostatic hyperplasia N40.0 Benign essential hypertension I10 Hyperthyroidism E05.90 Morbid obesity with BMI of 40.0-44.9, adult E66.01; Z68.41 Time Spent (min) 25
--- NOTE | 2020-06-02 14:18 | Electrocardiogram Report ---
Test Reason : Blood Pressure : / mmHG Vent. Rate : 077 BPM Atrial Rate : 077 BPM P-R Int : 162 ms QRS Dur : 094 ms QT Int : 412 ms P-R-T Axes : 052 023 007 degrees QTc Int : 466 ms Sinus rhythm with frequent Premature ventricular complexes Possible Left atrial enlargement Abnormal ECG When compared with ECG of 17-JAN-1996 20:39, Premature ventricular complexes are now Present Nonspecific T wave abnormality now evident in Inferior leads Confirmed by Sanket Mclain ([id number]) on 06/02/2020 2:18:06 PM Referred By: Jv Odonnell Confirmed By:Levon Mclain
--- NOTE | 2020-06-03 19:00 | Discharge Summary ---
Date of Service June 03, 2020 Admission HPI Per Admitting Provider 55 year old male with PMHx significant for HTN, hyperthyroidism, moderate aortic stenosis, JEFFERSON who presents with longstanding right shoulder pain. Pain interfering with his daily activity. He has endstage OA right shoulder. He has failed conservative measures including injection and anti-inflammatories. He would like to proceed with right shoulder replacement. Patient denies headaches, sweats, fevers, chills, double vision, blurred vision, cough, sore throat, dysphagia, chest pain, sob, wheezing, n/v/d/c, numbness, tingling, fatigue, urinary symptoms, mood disorders. ROS positive for right shoulder pain and stif fness. Admission Exam Per Admitting Provider Constitutional: well developed and well nourished; no acute distress Eyes: PERRL, conjunctivae normal, anicteric sclerae ENMT: external ear and nose normal, oropharynx normal Neck: trachea midline, no thyromegaly Respiratory: normal respiratory effort, lungs clear to auscultation Cardiovascular: Rate/Rhythm: regular rate and regular rhythm Heart Sounds: + murmur (II/ Systolic murmur ) Extremities: no edema Musculoskeletal: Right shoulder: Surgical scar deltopecortal region. Crepitus with motion. Positive Speed's. Painful ROM actively. ROM: ER to 30 degrees, IR to L4, FF to 120 degrees, abduction to 100 degrees. Strength-4+/5 ER, 5/5 IR, and 4+/5 abduction. Skin: no rashes, warm and dry Neurologic: patellar DTR's 2+ bilat, sensation intact Psychiatric: A+Ox3, euthymic affect Principal Diagnosis Right shoulder osteoarthritis Discharge Exam Dressings are clean, dry, and intact. Capillary refill is less than 2 seconds. He continues to have residual effects from his block this morning. Continued numbness in the thumb and index finger with a little bit of weak laundry folder strength. He is able to do some range of motion of the wrist but is weak as well. Hemovac drainage was 125 mL from the previous shift. Constitutional well developed and well nourished; no acute distress Discharge Data Allergies Allergy/AdvReac Type Severity Reaction Status Date / Time No Known Allergies Allergy Verified 06/01/20 10:15 Consultations 05/28/20 16:49 Consult Hospitalist Routine Procedures Performed Operation Date: 06/01/20 12:10 Actual Procedures p Right Total Shoulder Arthroplasty with Cemented Glenoid, Distal Clavicle Excision, Biceps Tenodesis(Right), Debridement Labrum and Large Osteophytes Glenoid, Increased Difficulty Body Mass Index 43.7(Right) - Jv Odonnell MD Ordered Studies 06/01/20 05:00 US - OR guided needle placemen Routine Hospital Course (1) Primary osteoarthritis, right shoulder: Patient presented for same day admission following right OVO motion total shoulder arthroplasty and distal clavicle excision on 06/01/20. He tolerated procedure well. The Patient had an uneventful hospital course. Post-operatively, his activity was progressed and well tolerated. They participated in PT without complication. Labs remained stable- lowest hemoglobin recorded: 13.3. Dr. Andrez Gaspar of medical service was consulted for medical management during admission. Pain controlled on oral medications. Please refer to daily progress notes and PT notes for complete details. After exam on 06/02/20, patient was felt to be stable for discharge home with plans on attending outpatient PT. Patient will f/u in the office in about 2 weeks for further evaluation including x-rays and incision check, sooner if having any issues or concerns. Postop day 1 status post right total shoulder arthroplasty PT/OT protocols. Nonweightbearing right upper extremity. DVT prophylaxis-aspirin, SCDs Pain management as written Labs pending DC planning-patient is planning for outpatient PT upon discharge. Lab Results 05/15/20 05/15/20 05/15/20 Range/Units 10:58 14:45 14:45 WBC (4.8-10.8) K/uL RBC (4.7-6.1) M/uL Hgb (14.0-18.0) g/dL Hct (42-52) % MCV (80-100) fL MCH (25-34) pg MCHC (32-36) g/dL RDW Std Deviation (36.4-46.3) fL RDW Coeff of Loly (11.5-14.5) % Plt Count (130-400) K/uL MPV (7.4-10.4) fL Immature Gran % (Auto) % Neut % (Auto) % Lymph % (Auto) % Coal % (Auto) % Eos % (Auto) % Baso % (Auto) % Neut # (Auto) (1.4-6.5) K/uL Lymph # (Auto) (1.2-3.4) K/uL Coal # (Auto) (0.11-0.59) K/uL Eos # (Auto) (0-0.5) K/uL Baso # (Auto) (0-0.2) K/uL Immature Gran # (Auto) (0.00-0.02) K/uL APTT 25.8 (21.0-31.0) Seconds PTT Ratio 1.0 Sodium (136-145) mmol/L Potassium (3.5-5.1) mmol/L Chloride (98-107) mmol/L Carbon Dioxide (21-32) mmol/L Anion Gap (3-11) BUN (7-18) mg/dl Creatinine (0.6-1.4) mg/dl Est Cr Clr Drug Dosing ml/min Est GFR ( Amer) Est GFR (Non-Af Amer) BUN/Creatinine Ratio (10-20) Glucose (70-99) mg/dl Estimat Average Glucose mg/dl Hemoglobin A1c (4.5-5.6) % Calcium (8.5-10.1) mg/dl Albumin 3.8 (3.4-5.0) gm/dl Urine Color Urine Appearance (Clear) Urine pH (4.5-7.5) Ur Specific Drake (1.000-1.030) Urine Protein (Negative) Urine Glucose (UA) (Negative) Urine Ketones (Negative) Urine Blood (Negative) Urine Nitrite (Negative) Urine Bilirubin (Negative) Urine Urobilinogen (Negative) Ur Leukocyte Esterase (Negative) COVID-19 Eval Order SARS-CoV-2, RNA, NAAT (NEGATIVE) Blood Type A Positive Antibody Screen NEGATIVE 05/15/20 05/15/20 06/01/20 Range/Units 14:45 14:45 Unknown WBC (4.8-10.8) K/uL RBC (4.7-6.1) M/uL Hgb (14.0-18.0) g/dL Hct (42-52) % MCV (80-100) fL MCH (25-34) pg MCHC (32-36) g/dL RDW Std Deviation (36.4-46.3) fL RDW Coeff of Loly (11.5-14.5) % Plt Count (130-400) K/uL MPV (7.4-10.4) fL Immature Gran % (Auto) % Neut % (Auto) % Lymph % (Auto) % Coal % (Auto) % Eos % (Auto) % Baso % (Auto) % Neut # (Auto) (1.4-6.5) K/uL Lymph # (Auto) (1.2-3.4) K/uL Coal # (Auto) (0.11-0.59) K/uL Eos # (Auto) (0-0.5) K/uL Baso # (Auto) (0-0.2) K/uL Immature Gran # (Auto) (0.00-0.02) K/uL APTT (21.0-31.0) Seconds PTT Ratio Sodium (136-145) mmol/L Potassium (3.5-5.1) mmol/L Chloride (98-107) mmol/L Carbon Dioxide (21-32) mmol/L Anion Gap (3-11) BUN (7-18) mg/dl Creatinine (0.6-1.4) mg/dl Est Cr Clr Drug Dosing ml/min Est GFR ( Amer) Est GFR (Non-Af Amer) BUN/Creatinine Ratio (10-20) Glucose (70-99) mg/dl Estimat Average Glucose 126 mg/dl Hemoglobin A1c 6.0 H (4.5-5.6) % Calcium (8.5-10.1) mg/dl Albumin (3.4-5.0) gm/dl Urine Color Yellow Urine Appearance Clear (Clear) Urine pH 7.0 (4.5-7.5) Ur Specific Drake 1.018 (1.000-1.030) Urine Protein Negative (Negative) Urine Glucose (UA) Negative (Negative) Urine Ketones Negative (Negative) Urine Blood Negative (Negative) Urine Nitrite Negative (Negative) Urine Bilirubin Negative (Negative) Urine Urobilinogen Negative (Negative) Ur Leukocyte Esterase Negative (Negative) COVID-19 Eval Order Covid19 IDNow [facility] SARS-CoV-2, RNA, NAAT (NEGATIVE) Blood Type Antibody Screen 06/01/20 06/02/20 06/02/20 Range/Units Unknown 08:06 08:06 WBC 11.41 H (4.8-10.8) K/uL RBC 4.25 L (4.7-6.1) M/uL Hgb 13.3 L (14.0-18.0) g/dL Hct 38.7 L (42-52) % MCV 91.1 (80-100) fL MCH 31.3 (25-34) pg MCHC 34.4 (32-36) g/dL RDW Std Deviation 45.1 (36.4-46.3) fL RDW Coeff of Loly 13.8 (11.5-14.5) % Plt Count 296 (130-400) K/uL MPV 10.1 (7.4-10.4) fL Immature Gran % (Auto) 0.2 % Neut % (Auto) 82.0 % Lymph % (Auto) 7.2 % Coal % (Auto) 10.6 % Eos % (Auto) 0.0 % Baso % (Auto) 0.0 % Neut # (Auto) 9.36 H (1.4-6.5) K/uL Lymph # (Auto) 0.82 L (1.2-3.4) K/uL Coal # (Auto) 1.21 H (0.11-0.59) K/uL Eos # (Auto) 0.00 (0-0.5) K/uL Baso # (Auto) 0.00 (0-0.2) K/uL Immature Gran # (Auto) 0.02 (0.00-0.02) K/uL APTT (21.0-31.0) Seconds PTT Ratio Sodium 134 L (136-145) mmol/L Potassium 4.2 (3.5-5.1) mmol/L Chloride 105 (98-107) mmol/L Carbon Dioxide 23 (21-32) mmol/L Anion Gap 6.0 (3-11) BUN 23 H (7-18) mg/dl Creatinine 1.27 (0.6-1.4) mg/dl Est Cr Clr Drug Dosing 103.3 ml/min Est GFR ( Amer) 73.2 Est GFR (Non-Af Amer) 63.2 BUN/Creatinine Ratio 18.3 (10-20) Glucose 142 H (70-99) mg/dl Estimat Average Glucose mg/dl Hemoglobin A1c (4.5-5.6) % Calcium 8.7 (8.5-10.1) mg/dl Albumin (3.4-5.0) gm/dl Urine Color Urine Appearance (Clear) Urine pH (4.5-7.5) Ur Specific Drake (1.000-1.030) Urine Protein (Negative) Urine Glucose (UA) (Negative) Urine Ketones (Negative) Urine Blood (Negative) Urine Nitrite (Negative) Urine Bilirubin (Negative) Urine Urobilinogen (Negative) Ur Leukocyte Esterase (Negative) COVID-19 Eval Order SARS-CoV-2, RNA, NAAT NEGATIVE (NEGATIVE) Blood Type Antibody Screen Total Time Total Time Spent Total Time Spent (In Minutes): 20 Discharge Plan Discharge Items Patient Disposition: Home - Self-Care Reason For Visit: Primary Osteoarthritis, Shoulder Discharge Diagnosis: Right shoulder osteoarthritis Activity: Per Instructions section Weightbearing: Right non-weightbearing Weightbearing Comment: Nonweightbearing right upper extremity Non-emergency contact: Surgeon Call non-emergency contact if: your pain is not controlled, your temperature is above 101.5, your wound has increased redness and your wound has increased drainage Follow-up/Referrals: Momo Álvarez MD [Primary Care Provider] - Diet: Regular Addtl Attending Provider Instructions: ACTIVITY RECOMMENDATIONS: SELF CARE INSTRUCTIONS AFTER TOTAL SHOULDER ARTHROPLASTY A. You may do daily exercises as taught in physical therapy while in hospital. No lifting with the operative arm. Please schedule your outpatient physical therapy appointment to begin within 2-3 days after leaving the hospital. Specific restrictions will be written on your physical therapy prescription that is provided to you. B. You are to wear your sling/immobilizer at all times EXCEPT when performing your daily exercises, participating in physical therapy and for hygiene purposes. C. You may perform dry, daily dressing changes. Please keep your incision covered. You may shower 48 hours after surgery. Do not apply soap or any ointment/lotions directly over incision. Do not soak incision in bath tub/swimming pool. D. You may use ice as needed to operative shoulder. SPECIAL CARE INSTRUCTIONS: MEDICATION INSTRUCTIONS: *It is recommended you take Aspirin 325mg daily for four weeks post-op. VERY IMPORTANT TO READ AND REVIEW A. There are a few signs you need to watch for after you are home. Call [facility] at [phone] if you experience any of the followin. Increased severe shoulder pain. Some pain is expected especially when you exercise. 2. Increased swelling in you shoulder or arm; pain or swelling in either upper extremity. 3. Any fluid drainage from the incision. 4. Shortness of breath or chest pain. B. Please call [facility] at [phone] if you have any questions or concerns about your operation or recovery. C. Call your physician if: 1. Temperature is greater than 101 degrees (F). 2. Pain is not relieved by prescribed pain medications. 3. Increase drainage or redness from incision. 4. Unanswered questions or concerns. FOLLOW UP VISIT: Please call [facility] at [phone] to schedule a follow up appointment with Dr. Odonnell or his PA in 12-14 days from your surgery date. Stand-Alone Forms: My [facility] [place], Opioid Pain Management, Smoking Cessation Medications and DC Order Prescriptions: New acetaminophen 500 mg Tablet 1,000 mg PO Q8 14 Days Qty: 84 RF: 0 polyethylene glycol 3350 [Miralax] 17 gram powder in packet 17 g PO DAILY PRN (Reason: constipation) Qty: 5 RF: 0 aspirin [Ecotrin Low Strength] 81 mg tablet,delayed release (DR/EC) 81 mg PO DAILY 14 Days Qty: 14 RF: 0 oxycodone 5 mg Tablet 5 mg PO Q4H MDD 6 PRN (Reason: pain) Qty: 30 RF: 0 Continued losartan 25 mg tablet 25 mg PO DAILY Qty: 30 RF: 5 cetirizine 10 mg tablet 10 mg PO QAM RF: 0 tamsulosin 0.4 mg capsule 0.4 mg PO QAM RF: 0 methimazole 5 mg tablet 10 mg PO QAM RF: 0 allopurinol 300 mg tablet 300 mg PO QAM RF: 0 dutasteride-tamsulosin 0.5-0.4 mg capsule, ER multiphase 24 hr 1 cap PO QAM RF: 0 Discharge Orders: Discharge Order (Routine); Ordered 06/02/20 Ordered By: Luigi Diamond/Other Patient Handouts: DVT Post Op Prevention, Prediabetes, 5 Steps for Eating Healthier, A1C Admission Data Admit Date/Time: 06/01/20 17:35 Attending Provider: Jv Odonnell Admit Provider: Jv Odonnell Primary Care Provider: Momo Álvarez. Other Providers: Supa Hodges Other Interventions: Discharge Summary Assessment (RN) Last Done: 06/02/20 11:21
== END 2020-06-02 13:52 | disposition home or self-care (01) | DRG 483 ==
LOC: 3E 09:53 → ASU 09:53 → OBSVTOIN 17:35